=== PATIENT | male | born 1990 | race Hispanic/Latino ===

== ENCOUNTER 2022-06-05 13:21 | Inpatient (IN) | payer SELFPAY ==
[~2022-06-05 13:21] MED LIST: Iopamidol 370 76% 100 ML VIAL ONE
[2022-06-05 15:21] LABS: #Eosinphils 0.1 thou/uL (0.0-0.7); #Lymphocytes 1.4 thou/uL (1.20-3.40); #Monocytes 0.8 thou/uL (0.11-0.59); #Neutrophils 7.5 thou/uL (1.40-6.50); %Basophils 0.2 % (0.0-1.0); %Eosinophils 0.6 % (0.0-10.0); %Lymphocytes 14.4 % (21.0-51.0); %Monocytes 8.1 % (0.0-10.0); %Neutrophils 76.7 % (42.0-75.0); Hemoglobin 14.1 g/dL (14.0-18.0); Mean Corpuscular HGB CONC 35.3 g/dL (32.0-36.0); Mean Corpuscular Hemoglobin 31.3 pg (27.0-31.0); Mean Corpuscular Volume 88.7 fl (78.0-98.0); Mean Platelet Volume 8.2 fL (7.4-10.4); Platelet Count 208 10x3/uL (130-400); RBC Distribution Width 11.8 % (11.5-14.5); Red Blood Cell (RBC) Count 4.51 mill/uL (4.70-6.10); White Blood Cell (WBC) Count 9.8 10x3/uL (4.8-10.8)
[2022-06-05 15:41] LABS: ALT (SGPT) 74 U/L (8-55); AST (SGOT) 30 U/L (5-34); Albumin 4.2 g/dL (3.5-5.0); Alkaline Phosphatase 55 U/L (40-110); Anion Gap 11 mmol/L (10-20); BUN (Urea Nitrogen) 15 mg/dL (8.9-20.6); Bilirubin, Total 0.7 mg/dL (0.2-1.2); Calc. Creatinine Clearance 0 mL/min (70-130); Carbon Dioxide 23 mmol/L (22-29); Chloride 108 mmol/L (98-107); Estimated GFR 97; Globulin 3.2 g/dL (2.4-3.5); Glucose 83 mg/dL (70-105); Potassium 3.6 mmol/L (3.5-5.1); Protein, Total 7.4 g/dL (6.0-8.3); Sodium 138 mmol/L (136-145)
[2022-06-05] MEDS ORDERED: Ketorolac Tromethamine 30 MG/ML VIAL ONE (16:11)
[2022-06-05] MEDS ORDERED: Ondansetron PF 4 MG/2 ML Vial ONE (16:11)
[2022-06-05] MEDS ORDERED: Piperacillin/Tazobactam 3.375 GM VIAL ONE (16:11)
[2022-06-05 19:56] VITALS: BMI 35.8
[2022-06-05] MEDS ORDERED: Ondansetron PF 4 MG/2 ML Vial IVP PRN (20:00)
[2022-06-05] MEDS ORDERED: Ondansetron ODT 4 MG TAB SL PRN (20:00)
[2022-06-05] MEDS: Morphine 4 MG/ML VIAL SLOW IVP PRN ×2 (20:15→23:59)
[2022-06-05] MEDS: Sodium Chloride 0.9% 1,000 ML IV SCH (20:16)
[2022-06-05] MEDS: Acetaminophen 325 MG TAB PO PRN (23:08)
[2022-06-06] MEDS: Sodium Chloride 0.9% 1,000 ML IV SCH (04:13)
[2022-06-06] MEDS: Morphine 4 MG/ML VIAL SLOW IVP PRN (04:36)
[2022-06-06] MEDS: Acetaminophen 325 MG TAB PO PRN (04:42)
[2022-06-06] MEDS ORDERED: Lidocaine Jelly 2% Urojet 10 ML ONE (07:34)
[2022-06-06] MEDS ORDERED: Bupivacaine 0.25% HCL 30 ML VIAL ONE (07:34)
[2022-06-06] MEDS ORDERED: Bupivacaine/Epinephrine 0.25% 30 ML VIAL ONE (07:35)
[2022-06-06] MEDS ORDERED: Ondansetron HCl/PF 4 MG/2 ML Vial IVP PRN (07:54)
[2022-06-06] MEDS ORDERED: Promethazine HCl 25 MG/ML VIAL IM PRN (07:54)
[2022-06-06] MEDS ORDERED: Dexmedetomidine 200 MCG/2 ML VIAL ONE (08:03)
[2022-06-06] MEDS ORDERED: HYDROmorphone 2 MG/ML VIAL ONE (08:03)
[2022-06-06] MEDS ORDERED: Metoclopramide HCl 10 MG/2 ML VIAL ONE (08:07)
[2022-06-06] MEDS ORDERED: Ondansetron PF 4 MG/2 ML Vial ONE (08:07)
[2022-06-06] MEDS ORDERED: PROPOFOL 200 MG/20 ML VIAL ONE (08:07)
[2022-06-06 11:50] VITALS: BP 108/71; TEMP 97.9
== END 2022-06-06 14:00 | disposition home or self-care (01) | DRG 349 ==
LOC: ERS 13:21 → MSONC 18:29
PROVIDERS: ADMIT Student in an Organized Health Care Education/Training Program; ATTEND Student in an Organized Health Care Education/Training Program
PROC: 0D9Q0ZZ Drainage of Anus, Open Approach (ICD-10-PCS; principal; 2022-06-05)
DX: K61.0 Anal abscess (principal); K64.4 Residual hemorrhoidal skin tags
CPT/HCPCS: 36415; 74177; 80053; 85025; 87070; 87077; 87186; 87205; 96365; 96375; J1170; J1885; J2001; J2270; J2405; J2543; J2704; J2765; J7050; Q9967; S0020